=== PATIENT | female | born 1935 | race Two or more races ===

== ENCOUNTER 2021-05-22 12:05 | Emergency (ER) | payer OTHER ==
[~2021-05-22] VITALS: Ht 167.6 cm; Wt 49.4 kg
--- NOTE | 2021-05-22 12:20 | NUR ---
BIB CAREGIVER FOR C/O SORE THROAT AND HEADACHE 08/09 X4 DAYS. IN ROOM AIR AND DENIES SOB. RESPIRATION REGULAR AND UNLABORED. DENIES COUGH. THE PATIENT DENIES FEVER, CHILLS, N/V. WILL CONTINUE TO MONITOR THE PATIENT.
--- NOTE | 2021-05-22 13:21 | NUR ---
JULIANN CANTRELL AT PT'S BEDSIDE
[2021-05-22] MEDS ORDERED: IBUP-1955 PO (13:48)
--- NOTE | 2021-05-22 14:04 | NUR ---
Patient discharged to home in stable condition. RX Written and verbal after care instructions given. Patient verbalizes understanding of instruction. PT ambulatory with a steady gait
--- NOTE | 2021-05-22 14:04 | NUR ---
COVID ANTIGEN SWAB COLLECTED AND SENT TO LAB
--- NOTE | 2021-05-22 14:04 | NUR ---
Mckenzie flores in ED - 05/22/21 at 1404 by AGUSTINA COVID SWAB DONE AND SENT TO THE LAB
[2021-05-22 14:11] VITALS: BP 138/75
== END 2021-05-22 14:11 | disposition home or self-care (01) ==
LOC: ER 12:16
DX: J02.9 Acute pharyngitis, unspecified (principal); R51.9 Headache, unspecified; Z20.822 Contact with and (suspected) exposure to COVID-19; I10 Essential (primary) hypertension
CPT/HCPCS: 87426; 99283; C9803